=== PATIENT | female | born 1980 | race African-American/Black ===

== ENCOUNTER 2018-07-10 13:00 | Observation (INO) | payer MEDICARE, OTHER ==
[2018-07-10] MEDS ORDERED: NORMAL SALINE 1,000 ML IV ONE (13:03)
[2018-07-10 13:31] LABS: Urine Bilirubin Negative (NEGATIVE); Urine Blood 250 /ul (NEGATIVE); Urine Ketone Negative (NEGATIVE); Urine Nitrite Negative (NEGATIVE); Urine Protein 100 mg/dL (NEGATIVE); Urine Specific Gravity >=1.030 SP.GR. (1.005-1.010); Urine Urobilinogen Normal (NORMAL)
[2018-07-10 13:34] LABS: Urine Color Dark Yellow
[2018-07-10 13:34] LABS: Hematocrit 38.6 % (37.0-47.0); Hemoglobin 12.2 gm/dL (12.5-16.0); Mean Cell Volume 82.8 fl (78-100); Mean Corpuscular Hemoglobin 26.2 pg (27-31); Mean Corpuscular Hgb Conc 31.6 g/dl (32-36); Mean Platelet Volume 10.4 fl (8-12.5); Neutrophil # 5.2 K/mm3 (1.3-6.0); Neutrophil % 61.2 % (42-75.0); Platelet Count 286 K/mm3 (150-450); Red Blood Count 4.66 M/mm3 (4.2-5.4); Red Cell Distribution Width 13.1 % (11.5-14.0); White Blood Count 8.4 K/mm3 (4.0-10.5)
[2018-07-10 13:35] LABS: Urine Appearance Cloudy (CLEAR)
[2018-07-10 13:44] LABS: Urine Bacteria 1+; Urine RBC >50 /hpf (0-5); Urine WBC 25-50 /hpf (0-5)
[2018-07-10 14:00] LABS: Albumin * 3.9 gm/dl (3.4-5.0); Anion Gap 9.5 mmol/L (6.8-13.8); BUN/Creatinine Ratio 19.3 (9.0-21.6); Bilirubin, Total 0.2 mg/dL (0.0-1.1); Ca. Corrected For Albumin 8.6 mg/dL (8.4-10.2); Calcium * 8.8 mg/dL (7.9-10.9); Carbon Dioxide 29.9 mmol/L (24-32.6); Potassium 3.4 mmol/L (3.4-4.6); Total Protein 6.8 gm/dL (6.2-8.2)
--- NOTE | 2018-07-10 14:53 | ERNOTE ---
ER Female HPI Date of Service: 07/10/18 Stated Complaint: weakness Time Seen by Provider: 07/10/18 13:03 Source: patient Exam Limitations: clinical condition Immunizations: IMMUNIZATION HX Immunizations Up to Date Yes History of Influenza Vaccine No Hx Pneumococcal Vaccination No Allergies/Adverse Reactions: Allergies methylprednisolone Adverse Reaction (Verified 07/10/18 13:09) Pt just staying away from it due to so much steroids lately. She does have some itching with it. Home Medications: HOME MEDICATIONS Ibuprofen [Motrin] 800 mg PO TID PRN #60 tab 01/15/16 [Last Taken Unknown] baclofen 20 mg tablet 20 mg PO TID tab 06/10/18 [Last Taken Unknown] calcium carbonate 500 mg (1,250 mg)-vitamin D3 200 unit tablet 1 tab PO BID 06/10/18 [Last Taken Unknown] chlorhexidine gluconate 4 % topical liquid 1 applic TP Q5M PRN ml 06/10/18 [Last Taken Unknown] cranberry-B.msibdznox-E-Nn phos 480 mg-20 mg-100 million cell tablet 1 tab PO DAILY tab 06/10/18 [Last Taken Unknown] diphenhydramine 50 mg capsule 50 mg PO HS PRN 06/10/18 [Last Taken Unknown] folic acid 1 mg tablet 1 mg PO DAILY 06/10/18 [Last Taken Unknown] levetiracetam 500 mg tablet 500 mg PO Q12H 06/10/18 [Last Taken Unknown] lidocaine 4 % topical cream 1 applic TP TID PRN 06/10/18 [Last Taken Unknown] medroxyprogesterone 150 mg/mL intramuscular syringe 150 mg IM [id number] 06/10/18 [Last Taken Unknown] modafinil 200 mg tablet 200 mg PO DAILY 06/10/18 [Last Taken Unknown] multivitamin with minerals capsule 1 cap PO DAILY 06/10/18 [Last Taken Unknown] mycophenolate mofetil 250 mg capsule 250 mg PO DAILY cap 06/10/18 [Last Taken Unknown] mycophenolate mofetil 500 mg tablet 500 mg PO .COMPLEX 06/10/18 [Last Taken Unknown] polyethylene glycol 3350 17 gram oral powder packet 17 g PO DAILY 06/10/18 [Last Taken Unknown] thiamine HCl (vitamin B1) 100 mg tablet 100 mg PO DAILY 06/10/18 [Last Taken Unknown] tocilizumab 162 mg/0.9 mL subcutaneous syringe 162 mg SUB-Q Q2W 06/10/18 [Last Taken Unknown] bupropion HCl SR 150 mg tablet,12 hr sustained-release 150 mg PO BID #60 tab 06/11/18 [Last Taken Unknown] loratadine 10 mg tablet 10 mg PO DAILY #30 tab 06/11/18 [Last Taken Unknown] multivitamin-iron 9 mg-folic acid 400 mcg-calcium and minerals tablet 1 tab PO DAILY #30 tab 06/11/18 [Last Taken Unknown] thiamine HCl (vitamin B1) 100 mg tablet 100 mg PO DAILY #30 tab 06/11/18 [Last Taken Unknown] alprazolam 0.5 mg tablet 0.5 mg PO BID #60 tab 07/07/18 [Last Taken Unknown] citalopram 20 mg tablet 20 mg PO BID #60 tab 07/07/18 [Last Taken Unknown] - History of Present Illness Narrative: Patient presents to the ED via EMS. She presents for increased generalized weakness and RUE weakness with concentrated urine and possible UTI/ Sjhe denies vomiting. No trauma. She relates the her weakness is significantly worsened from baseline over the last day. She had been in [facility] and was in rehab prior to being back at home. No fever has been noted. No acute CP or SOB. Nothing seems to make this better or worse really. Timing: Present: constant, getting worse Quality: Present: other - no pain Onset Location: Absent: right flank, left flank Radiation: Present: none Activities at Onset: Present: none Prior Abdominal Problems: Present: other - has had this with UTI before according to the patient Modifying Factors - (Improves): Present: other - nothing Modifying Factors - (Worsens): Present: other - nothign Associated Symptoms: Absent: fever/chills, vomiting Prior Treatment: Absent: currently on antibiotics Review of Systems - Review of Systems Constitutional: Absent: fever Respiratory: Absent: shortness of breath Cardiology: Absent: chest pain Gastrointestinal/Abdominal: Absent: vomiting Skin: Absent: rash All Other Systems: All systems neg except as marked 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 Anxiety disorder Onset Date: ~2014 History of abnormal cervical Pap smear Onset Date: Unknown History of cervical dysplasia Onset Date: Unknown History of wisdom tooth extraction Onset Date: ~1996 Surgical History: Surgical History (Last Reviewed 07/10/18 @ 14:47 by Wilbur Chaidez MD) IUD (intrauterine device) in place Onset Date: 07/21/13 History of cryosurgery Onset Date: ~1996 History of dilation and curettage Onset Date: ~2004 History of sinus surgery Onset Date: ~2007 History of tonsillectomy Onset Date: ~1988 Family History: Family History (Last Reviewed 07/10/18 @ 14:47 by Wilbur Chaidez MD) Father Diabetes Stomach ulcer Mother Cancer Diabetes Social History: Preferred Language Croatian Smoking Status Never smoker Abuse History No History of abuse Psych History Hx of Anxiety Alcohol Use none Drug Use none Physical Exam - Physical Exam General Appearance: Present: alert, no apparent distress, other - chronically ill appearing Head Exam: Present: normal inspection, no evidence of injury Eye Exam: Normal inspection: bilateral, PERRL: bilateral Ears, Nose, Throat: Present: normal ENT inspection Neck: Present: normal inspection Respiratory: Present: no respiratory distress, normal breath sounds, no accessory muscle use, lungs clear Cardiovascular/Chest: Present: normal peripheral pulses, tachycardia Gastrointestinal/Abdominal: Present: normal bowel sounds, nontender, soft Back Exam: Absent: CVA tenderness (R), CVA tenderness (L) Extremity Exam: Present: other - no acute deformity Neurological Exam: Present: alert, other - gsevere generalized weakness noted. There is no clear acute paralysis that I can identify at this point. Skin Exam: Present: normal color, warm/dry ED Progress - Results and Orders Patient's Lab Results:: I have reviewed the patient's lab results. - Vital Signs Patient's Vital Signs:: I have reviewed the patient's vital signs. Vital Signs: Vital Signs 07/10/18 13:01 07/10/18 13:30 Temperature 36.7 C Pulse Rate 113 H 113 H Respiratory Rate 18 17 Blood Pressure 123/79 124/89 O2 Sat by Pulse Oximetry 98 97 - Progress/Reassessment Chief Complaint: Urinary Tract Problems Progress Note-Subjective: 07/10/18 14:49 IV fluids and IV ABx given. Patient preferred to stay here rather than go to the [facility] but she wanted me to check with her Neurologist to see if that would br OK. I spoke with Dr Balderrama at [facility], he felt she could stay here and be transferred if she worsened or if new symptoms arose. I spoke with Dr Garcia who will admit. 07/10/18 14:53 I do not find anything at this time that would suggest acute stroke. Departure Clinical Impression: Generalized weakness, UTI (urinary tract infection) - Departure Disposition: Still a patient Condition: Fair
[2018-07-10] MEDS ORDERED: IBUPROFEN 800 MG TABLET PO PRN (16:47)
[2018-07-10] MEDS ORDERED: diphenhydrAMINE HCL 50 MG CAPSULE PO PRN (16:47)
--- NOTE | 2018-07-10 16:58 | HP ---
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 She was recently treated at [facility] for this and then rehabing at the [facility]. She recently was discharged to home. She has a history of neurogenic bladder with frequent UTIs. She reports over the last few days getting progressively weaker. She reports in the past this would be a symptom of a UTI. Typically with her flare of NMO she gets focal worsening of her speech without involvement of lower extremities. Currently she is unable to stand as she is too weak. Urine taken in the ER does suggest possible UTI. She was given a dose of rocephin. ER contacted [facility] neurology because Beny wished to stay close to home and attempt treating UTI rather than be transferred to [facility]. Neurology was ok with this plan unless she continued to worsen or the diagnosis of UTI became less likely. 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 Anxiety disorder Onset Date: ~2014 History of abnormal cervical Pap smear Onset Date: Unknown History of cervical dysplasia Onset Date: Unknown History of wisdom tooth extraction Onset Date: ~1996 Surgical History: Surgical History (Last Reviewed 07/10/18 @ 14:47 by Wilbur Chaidez MD) IUD (intrauterine device) in place Onset Date: 07/21/13 History of cryosurgery Onset Date: ~1996 History of dilation and curettage Onset Date: ~2004 History of sinus surgery Onset Date: ~2007 History of tonsillectomy Onset Date: ~1988 Family History: Family History (Last Reviewed 07/10/18 @ 14:47 by Wilbur Chaidez MD) Father Diabetes Stomach ulcer Mother Cancer Diabetes Social History: Patient Lives/Resources [facility] Utilized Occupation disability Preferred Language Ghanaian Do you have any druze or No cultural preference? Smoking Status Former smoker Have you smoked in the past 12 No months Do you dip or chew tobacco No Abuse History No History of abuse Psych History Hx of Anxiety Alcohol Use none Drug Use none Review Of Systems (GEN) - Review of Systems Generalized/Overall Review: Present: Weakness, Fatigue. Absent: Chills, Fever EENTM: Present: Other - Difficulty speaking, slow pressured speech Cardiac: Absent: Chest Pain, Edema, Palpitations Abdominal: Absent: Nausea, Vomiting, Abdominal Pain, Constipation, Diarrhea Genitourinary: Present: Frequency, Incontinent. Absent: Burning, Urgency Musculoskeletal: Present: No Symptoms Reported Neurological: Present: No Symptoms Reported Skin: Present: No Symptoms Reported Immunizations: IMMUNIZATION HX Immunizations Up to Date Yes History of Influenza Vaccine No Hx Pneumococcal Vaccination No Allergies/Adverse Reactions: Allergies Allergy/AdvReac Type Severity Reaction Status Date / Time methylprednisolone AdvReac Verified 07/10/18 13:09 Home Medications: HOME MEDICATIONS Ibuprofen [Motrin] 800 mg PO TID PRN #60 tab 01/15/16 [Last Taken Unknown] baclofen 20 mg tablet 20 mg PO TID tab 06/10/18 [Last Taken Unknown] calcium carbonate 500 mg (1,250 mg)-vitamin D3 200 unit tablet 1 tab PO BID 06/10/18 [Last Taken Unknown] chlorhexidine gluconate 4 % topical liquid 1 applic TP Q5M PRN ml 06/10/18 [Last Taken Unknown] cranberry-B.kfuimzasy-P-Ct phos 480 mg-20 mg-100 million cell tablet 1 tab PO DAILY tab 06/10/18 [Last Taken Unknown] diphenhydramine 50 mg capsule 50 mg PO HS PRN 06/10/18 [Last Taken Unknown] folic acid 1 mg tablet 1 mg PO DAILY 06/10/18 [Last Taken Unknown] levetiracetam 500 mg tablet 500 mg PO Q12H 06/10/18 [Last Taken Unknown] lidocaine 4 % topical cream 1 applic TP TID PRN 06/10/18 [Last Taken Unknown] medroxyprogesterone 150 mg/mL intramuscular syringe 150 mg IM [id number] 06/10/18 [Last Taken Unknown] modafinil 200 mg tablet 200 mg PO DAILY 06/10/18 [Last Taken Unknown] multivitamin with minerals capsule 1 cap PO DAILY 06/10/18 [Last Taken Unknown] mycophenolate mofetil 250 mg capsule 250 mg PO DAILY cap 06/10/18 [Last Taken Unknown] mycophenolate mofetil 500 mg tablet 500 mg PO .COMPLEX 06/10/18 [Last Taken Unknown] polyethylene glycol 3350 17 gram oral powder packet 17 g PO DAILY 06/10/18 [Last Taken Unknown] thiamine HCl (vitamin B1) 100 mg tablet 100 mg PO DAILY 06/10/18 [Last Taken Unknown] tocilizumab 162 mg/0.9 mL subcutaneous syringe 162 mg SUB-Q Q2W 06/10/18 [Last Taken Unknown] bupropion HCl SR 150 mg tablet,12 hr sustained-release 150 mg PO BID #60 tab 06/11/18 [Last Taken Unknown] loratadine 10 mg tablet 10 mg PO DAILY #30 tab 06/11/18 [Last Taken Unknown] multivitamin-iron 9 mg-folic acid 400 mcg-calcium and minerals tablet 1 tab PO DAILY #30 tab 06/11/18 [Last Taken Unknown] thiamine HCl (vitamin B1) 100 mg tablet 100 mg PO DAILY #30 tab 06/11/18 [Last Taken Unknown] alprazolam 0.5 mg tablet 0.5 mg PO BID #60 tab 07/07/18 [Last Taken Unknown] citalopram 20 mg tablet 20 mg PO BID #60 tab 07/07/18 [Last Taken Unknown] Exam - Exam Vital Signs: Vital Signs - Last Taken Temp 36.7 C 07/10/18 15:20 Pulse 104 H 07/10/18 15:42 Resp 15 07/10/18 15:20 BP 112/74 07/10/18 15:20 Pulse Ox 96 07/10/18 15:20 Constitutional: Present: Alert, Oriented x3, Cooperative ENT Exam: Present: hearing grossly normal Eye Exam: bilateral eye: normal inspection Respiratory: Present: lungs clear, normal breath sounds Cardiovascular/Chest: Present: regular rate, rhythm, no murmur Abdomen: Present: Normal bowel sounds, soft, nontender, nondistended, no hepatospenomegaly Extremity: Present: normal capillary refill. Absent: lower extremity edema Skin Exam: Present: normal color, warm/dry, no cyanosis Neurologic: Present: other - Patient with slow and pressured speach. Patient is understandable if given time to produce words. Patient is unable to stand, which is not her baseline. Eye contact: Present: cooperative, good eye contact, decreased rate of speech. Absent: normal speech Thoughts: Present: normal thought pattern, no apparent hallucination Diagnostic Studies: Abnormal Lab Results 07/10/18 07/10/18 Range/Units 13:20 13:25 Hgb 12.2 L (12.5-16.0) gm/dL MCH 26.2 L (27-31) pg MCHC 31.6 L (32-36) g/dl Basophils % 1.1 H (0.0-1.0) % Urine Protein 100 H (NEGATIVE) mg/dL Urine Blood 250 H (NEGATIVE) /ul Prot Sulfosalicylic Acd 3+ H (0) mg/dL Ur Leukocyte Esterase 75 H (NEGATIVE) /ul Urine RBC >50 H (0-5) /hpf Urine WBC 25-50 H (0-5) /hpf Urine Bacteria 1+ H (NONE) Laboratory Results WBC 8.4 K/mm3 (4.0-10.5) 07/10/18 13:20 RBC 4.66 M/mm3 (4.2-5.4) 07/10/18 13:20 Hgb 12.2 gm/dL (12.5-16.0) L 07/10/18 13:20 Hct 38.6 % (37.0-47.0) 07/10/18 13:20 MCV 82.8 fl (78-100) 07/10/18 13:20 MCH 26.2 pg (27-31) L 07/10/18 13:20 MCHC 31.6 g/dl (32-36) L 07/10/18 13:20 RDW 13.1 % (11.5-14.0) 07/10/18 13:20 Plt Count 286 K/mm3 (150-450) 07/10/18 13:20 MPV 10.4 fl (8-12.5) 07/10/18 13:20 Immature Gran % (Auto) 0.20 % (0.001-0.429) 07/10/18 13:20 Immature Gran # (Auto) 0.02 K/mm3 (0.000-0.0310) 07/10/18 13:20 Neutrophils % 61.2 % (42-75.0) 07/10/18 13:20 Lymphocytes % 26.2 % (20-51) 07/10/18 13:20 Monocytes % 9.0 % (0.0-9) 07/10/18 13:20 Eosinophils % 2.3 % (0.0-3.0) 07/10/18 13:20 Basophils % 1.1 % (0.0-1.0) H 07/10/18 13:20 Nucleated RBC % 0.0 k/mm3 (0-1) 07/10/18 13:20 Neutrophils # 5.2 K/mm3 (1.3-6.0) 07/10/18 13:20 Lymphocytes # 2.21 k/mm3 (1.5-3.5) 07/10/18 13:20 Monocytes # 0.8 k/mm3 (0.0-1.0) 07/10/18 13:20 Eosinophils # 0.2 k/mm3 (0.0-0.7) 07/10/18 13:20 Absolute Basophils 0.1 k/mm3 (0.0-0.1) 07/10/18 13:20 Sodium 140 mmol/L (132-142) 07/10/18 13:40 Plasma Sodium 140 mmol/L (130-142) 07/10/18 13:40 Potassium 3.4 mmol/L (3.4-4.6) 07/10/18 13:40 Chloride 104 mmol/L (97-106) 07/10/18 13:40 Carbon Dioxide 29.9 mmol/L (24-32.6) 07/10/18 13:40 Anion Gap 9.5 mmol/L (6.8-13.8) 07/10/18 13:40 BUN 16 mg/dL (3-23) 07/10/18 13:40 Creatinine 0.83 mg/dL (0.4-1.4) 07/10/18 13:40 Est GFR (Non-Af Amer) 99 mL/min (60-130) D 07/10/18 13:40 BUN/Creatinine Ratio 19.3 (9.0-21.6) 07/10/18 13:40 Random Glucose 91 mg/dL (70-110) 07/10/18 13:40 Lactic Acid, Venous 1.2 mmol/L (0.4-2.0) 07/10/18 13:20 Calcium 8.8 mg/dL (7.9-10.9) 07/10/18 13:40 Calcium Adj for Albumin 8.6 mg/dL (8.4-10.2) 07/10/18 13:40 Total Bilirubin 0.2 mg/dL (0.0-1.1) 07/10/18 13:40 AST 18 U/L (0-48) 07/10/18 13:40 ALT 40 U/L (19-67) 07/10/18 13:40 Alkaline Phosphatase 109 U/L (50-170) 07/10/18 13:40 Total Protein 6.8 gm/dL (6.2-8.2) 07/10/18 13:40 Albumin 3.9 gm/dl (3.4-5.0) 07/10/18 13:40 Serum HCG, Qual Negative (NEGATIVE) 07/10/18 13:20 Urine Color Dark yellow 07/10/18 13:25 Urine Appearance Cloudy (CLEAR) 07/10/18 13:25 Urine pH 6.0 pH (5.0-7.0) 07/10/18 13:25 Ur Specific Burns >=1.030 SP.GR. (1.005-1.010) 07/10/18 13:25 Urine Protein 100 mg/dL (NEGATIVE) H 07/10/18 13:25 Urine Glucose (UA) Negative mg/dL (NEGATIVE) 07/10/18 13:25 Urine Ketones Negative mg/dL (NEGATIVE) 07/10/18 13:25 Urine Blood 250 /ul (NEGATIVE) H 07/10/18 13:25 Urine Nitrate Negative (NEGATIVE) 07/10/18 13:25 Urine Bilirubin Negative mg/dl (NEGATIVE) 07/10/18 13:25 Prot Sulfosalicylic Acd 3+ mg/dL (0) H 07/10/18 13:25 Urine Urobilinogen Normal EU/dl (NORMAL) 07/10/18 13:25 Ur Leukocyte Esterase 75 /ul (NEGATIVE) H 07/10/18 13:25 Urine RBC >50 /hpf (0-5) H 07/10/18 13:25 Urine WBC 25-50 /hpf (0-5) H 07/10/18 13:25 Ur Epithelial Cells None seen /hpf (0-5) 07/10/18 13:25 Urine Bacteria 1+ (NONE) H 07/10/18 13:25 Urine Culture Comments Culture to follow 07/10/18 13:25 Assessment/Plan - Narrative Narrative: "Beny" is a 38 yo female with progressive generalized weakness. She is unable to stand which is an acute change from her baseline. She has neuromyelitis optica treated by [facility] Neurology. She also has history of UTI. Based on Shays reports she feels her current full body weakness is usually a symptom she gets with a UTI. Her UA is suspicious for UTI. Will start on rocephin and monitor urine culture. Will monitor neuro status. This was discussed with neurology at [facility] who was ok with her being admitted locally and monitored and treated for UTI per the patient's wishes. But that if her condition does not improve with treatment or there is evidence that this is not a UTI she should be transferred to [facility]. Will admit to observation at this time. - Assessment/Plan (1) Generalized weakness Problem: Acute (2) Neuromyelitis optica Problem: Acute
[2018-07-10] MEDS: BACLOFEN 10 MG TABLET PO SCH (18:46)
[2018-07-10] MEDS ORDERED: MYCOPHENOLATE MOFETIL 500 MG TABLET PO SCH ×2 (21:00)
[2018-07-10] MEDS: CALCIUM CARBONATE/VITAMIN D3 1 TAB TABLET PO SCH (22:55)
[2018-07-10] MEDS: levETIRAcetam 500 MG TABLET PO SCH (22:55)
[2018-07-10] MEDS: CITALOPRAM HYDROBROMIDE 20 MG TABLET PO SCH (22:55)
[2018-07-10] MEDS: buPROPion HCL 150 MG TABLET.SA PO SCH (22:56)
[2018-07-10] MEDS: ALPRAZolam 0.5 MG TABLET PO SCH (22:56)
[2018-07-11] MEDS: levETIRAcetam 500 MG TABLET PO SCH ×2 (05:40→18:03)
[2018-07-11] MEDS ORDERED: FOLIC ACID 1 MG TABLET PO SCH (09:00)
[2018-07-11] MEDS ORDERED: MULTIVITAMIN/IRON/FOLIC ACID 1 TAB TABLET PO SCH (09:00)
[2018-07-11] MEDS ORDERED: MYCOPHENOLATE MOFETIL 500 MG TABLET PO SCH (09:00)
[2018-07-11] MEDS ORDERED: LORATADINE 10 MG TABLET PO SCH (09:00)
[2018-07-11] MEDS ORDERED: Modafinil [Provigil] 200 MG PO SCH (09:00)
[2018-07-11] MEDS: ALPRAZolam 0.5 MG TABLET PO SCH (09:25)
[2018-07-11] MEDS: BACLOFEN 10 MG TABLET PO SCH ×3 (09:25→18:03)
[2018-07-11] MEDS: CALCIUM CARBONATE/VITAMIN D3 1 TAB TABLET PO SCH (09:25)
[2018-07-11] MEDS: buPROPion HCL 150 MG TABLET.SA PO SCH (09:26)
[2018-07-11] MEDS: CITALOPRAM HYDROBROMIDE 20 MG TABLET PO SCH (09:26)
--- NOTE | 2018-07-11 12:16 | PN ---
Mary Note - Interim Date: 07/11/18 Time: 12:11 Narrative: 07/11/18 12:11 Beny's urine culture has returned with no growth. She has no fever. Talking with her today I feel her speech is slower and she continues to be unable to stand which is not her normal. There is less evidence that her current worsening is due to UTI and likely related to neuromyelitis. She needs to be in the care of her neurology team at the [facility]. Will plan to transfer.
--- NOTE | 2018-07-11 14:02 | DS ---
Transfer Discharge Summary - Diagnosis(s)/Problems (1) Generalized weakness Problem: Acute (2) Neuromyelitis optica Problem: Acute - Course Description of Stay: "Beny" is a 38 yo -[place] female with known history of Neuromyelitis Optica. She presented to the ER yesterday with progressive generalized weakness. She has a history of UTI with generalized weakness as her primary symptoms. It was discussed with [facility] Neurology that the patient wished to be close to home and attempt to treat this as a UTI before being transferred to [facility]. Neurology was ok with this plan and she was admitted to observation for treatment with Rocephin. However today urine culture has no growth, she has no fevers, and I believe her weakness is a little worse today than yesterday. Her speech is severely slow and pressured and she is unable to stand today which is not her baseline. Discussed with [facility] who accepted her in transfer. Will transfer by ambulance to a facility that is able to treat her neuromyelitis and is familiar with her care. This is the closest facility that meets her needs. Consultation Done:: [facility] Neurology Procedures Performed: none - Results and Findings Results and Findings: Laboratory Results - last 24 hr 07/10/18 13:40 Sodium 140 Plasma Sodium 140 Potassium 3.4 Chloride 104 Carbon Dioxide 29.9 Anion Gap 9.5 BUN 16 Creatinine 0.83 Est GFR (Non-Af Amer) 99 D BUN/Creatinine Ratio 19.3 Random Glucose 91 Calcium 8.8 Calcium Adj for Albumin 8.6 Total Bilirubin 0.2 AST 18 ALT 40 Alkaline Phosphatase 109 Total Protein 6.8 Albumin 3.9 - Medications Medications: Active Medications Alprazolam (Xanax) 0.5 mg PO BID DEMETRIUS Stop: 08/09/18 21:01 Last Admin: 07/11/18 09:25 Dose: 0.5 mg Baclofen (Baclofen) 20 mg PO TID DEMETRIUS Stop: 08/09/18 17:16 Last Admin: 07/11/18 09:25 Dose: 20 mg Bupropion HCl (Wellbutrin Sr, Zyban) 150 mg PO BID DEMETRIUS Stop: 08/09/18 21:01 Last Admin: 07/11/18 09:26 Dose: 150 mg Calcium/Vitamin D (Calcarb 600 With Vitamin D) 1 tab PO BID DEMETRIUS Stop: 08/09/18 21:01 Last Admin: 07/11/18 09:25 Dose: 1 tab Citalopram Hydrobromide (Celexa) 20 mg PO BID DEMETRIUS Stop: 08/09/18 21:01 Last Admin: 07/11/18 09:26 Dose: 20 mg Diphenhydramine HCl (Benadryl) 50 mg PO HS PRN PRN Reason: Pain Stop: 08/09/18 16:48 Last Admin: 07/10/18 23:44 Dose: 50 mg Folic Acid (Folic Acid) 1 mg PO DAILY DEMETRIUS Stop: 08/10/18 09:01 Last Admin: 07/11/18 09:26 Dose: 1 mg Levetiracetam (Keppra) 500 mg PO Q12H DEMETRIUS Stop: 08/09/18 17:01 Last Admin: 07/11/18 05:40 Dose: Not Given Loratadine (Claritin) 10 mg PO DAILY DEMETRIUS Stop: 08/10/18 09:01 Last Admin: 07/11/18 09:26 Dose: 10 mg Multivitamins/Minerals (Certagen) 1 tab PO DAILY DEMETRIUS Stop: 08/10/18 09:01 Last Admin: 07/11/18 09:25 Dose: 1 tab Mycophenolate Mofetil (Cellcept) 250 mg PO HS DEMETRIUS Stop: 08/09/18 21:01 Last Admin: 07/10/18 22:56 Dose: 250 mg Mycophenolate Mofetil (Cellcept) 1,500 mg PO DAILY DEMETRIUS Stop: 08/10/18 09:01 Last Admin: 07/11/18 09:26 Dose: 1,500 mg Mycophenolate Mofetil (Cellcept) 1,000 mg PO HS DEMETRIUS Stop: 08/09/18 21:01 Last Admin: 07/10/18 22:55 Dose: 1,000 mg Modafinil [Provigil] (200 Mg) 200 mg PO DAILY DEMETRIUS Stop: 08/10/18 09:01 Last Admin: 07/11/18 09:58 Dose: Not Given Discontinued Medications Sodium Chloride (Sodium Chloride 0.9%) 1,000 mls @ 999 mls/hr IV .Q1H1M ONE Stop: 07/10/18 14:03 Last Admin: 07/10/18 13:29 Dose: 999 mls/hr Ceftriaxone Sodium 1,000 mg/ (Dextrose/Water) 100 mls @ 200 mls/hr IV ONCE ONE; Protocol Stop: 07/10/18 14:32 Last Admin: 07/10/18 14:14 Dose: 200 mls/hr - Disposition Disposition: Short Term Hospital Inpatient Condition: Fair Discharge Date: 07/11/18
[2018-07-11 23:11] VITALS: BP 99/66
== END 2018-07-11 20:45 | disposition short-term general hospital (02) ==
LOC: ER 13:00 → MS 13:00
PROVIDERS: ADMIT Family Medicine; ATTEND Family Medicine
CPT/HCPCS: 36415; 80053; 81001; 83605; 84703; 85025; 87086; 99284